=== PATIENT | male | born 1965 | race Caucasian/White ===

== ENCOUNTER 2016-09-08 19:32 | Emergency (ER) | payer MEDICAID, OTHER ==
[~2016-09-08] VITALS: Wt 89.0 kg
[~2016-09-08 19:32] MED LIST: NO MEDS
[2016-09-08] MEDS ORDERED: PRED20TA PO (20:09)
[2016-09-08] MEDS ORDERED: ACYC800T57 PO (20:09)
[2016-09-08] MEDS ORDERED: HYDR-906 PO (20:09)
[2016-09-08] MEDS ORDERED: IBUP-1542 PO (20:10)
--- NOTE | 2016-09-08 20:12 | ERD ---
ER Documentation Chief Complaint Date/Time DATE: 09/08/16 TIME: 20:11 Chief Complaint RIGHT SIDE ABDOMINAL AREA BURNING ON SKIN. APPEARS A PUSTULAR RASH. HPI This 51-year-old male presents with a rash on the right side of his abdomen for last 3 days which is painful and blisters. He also feels fatigued and has body aches measured fevers, cough, shortness breath or chest pain. ROS All systems reviewed and are negative except as per history of present illness. Medications Home Meds Active Scripts Ibuprofen* (Motrin*) 600 Mg Tab, 600 MG PO Q6, #15 TAB Prov:LINA HOLLINS MD 09/08/16 Hydrocodone/Acetaminophen ([place] 5-325 Tablet) 1 Each Tablet, 1 TAB PO Q6H Y for PAIN, #12 TAB Prov:LINA HOLLINS MD 09/08/16 Acyclovir* (Zovirax*) 800 Mg Tablet, 800 MG PO 5 TIMES DAILY for 7 Days, TAB Prov:LINA HOLLINS MD 09/08/16 Reported Medications [No Meds] No Conflict Check 03/31/10 Discontinued Scripts Prednisone* (Prednisone*) 20 Mg Tab, 40 MG PO DAILY for 4 Days, TAB Prov:LINA HOLLINS MD 09/08/16 Allergies Allergies: Coded Allergies: No Known Drug Allergies (Verified Allergy, Mild, 03/31/10) PMhx/Soc History of Surgery: No Anesthesia Reaction: No Hx Neurological Disorder: No Hx Respiratory Disorders: No Hx Cardiac Disorders: No Hx Psychiatric Problems: No Hx Miscellaneous Medical Probl: Yes (KIDNEY PROBLEMS) Hx Alcohol Use: Yes (OCCASSIONALLY) Hx Substance Use: No Hx Tobacco Use: No Physical Exam Vitals Vital Signs Date Time Temp Pulse Resp B/P Pulse Ox O2 Delivery O2 Flow Rate FiO2 09/08/16 19:37 97.7 69 20 135/85 98 Physical Exam Const: [] Alert, [id number] per Head: Atraumatic Eyes: Normal Conjunctiva ENT: Normal External Ears, Nose and Mouth. Neck: Full range of motion..~ No meningismus. Resp: Clear to auscultation bilaterally Cardio: Regular rate and rhythm, no murmurs Abd: Soft, non tender, non distended. Normal bowel sounds Skin: No petechiae or purpura. There is a vesicular dermatomal rash on the right flank. There is no streaking or significant induration. Back: No midline or flank tenderness Ext: No cyanosis, or edema Neur: Awake and alert Psych: Normal Mood and Affect Procedures/MDM Patient presents with signs and symptoms of herpes zoster. We treated with a short course of [place] and acyclovir and ibuprofen. The patient was stable with no new complaints during the ER course. Clinically, there is no current evidence to suggest meningitis, sepsis, acute abdomen, pneumonia, acute coronary syndrome, pulmonary embolism, or any other emergent condition appearing to require further evaluation or hospitalization. The patient should certainly return for any new or worsening symptoms per the aftercare instructions. They should otherwise follow-up with her primary care doctor for reevaluation this week. Departure Diagnosis: Primary Impression: Shingles Herpes zoster complications: without complications Qualified Code: B02.9 - Herpes zoster without complication Condition: Stable Patient Instructions: Shingles (Herpes Zoster) Additional Instructions: Cheque otro vez con torrez doctor primario en el proximo back or regresa para mas o nueva simptomas. LINA HOLLINS MD September 08, 2016 20:12
== END 2016-09-08 20:46 | disposition home or self-care (01) ==
LOC: FTE 19:32
DX: B02.9 Zoster without complications (principal)
CPT/HCPCS: 99284

== ENCOUNTER 2016-09-24 01:58 | Emergency (ER) | payer OTHER ==
[~2016-09-24] VITALS: Ht 167.6 cm; Wt 86.0 kg
[~2016-09-24 01:58] MED LIST changes: +ACYC800T57 PO; +HYDR-906 PO; +IBUP-1542 PO
[2016-09-24 02:00] VITALS: Ht 167.6 cm; Wt 86.0 kg
[2016-09-24] MEDS ORDERED: ONDA4TAB14 PO (03:26)
[2016-09-24] MEDS ORDERED: IBUP-1542 PO (03:26)
[2016-09-24] MEDS ORDERED: DICY10CA60 PO (03:26)
[2016-09-24] MEDS ORDERED: DICYCLOMINE 10 MG CAP PO ONE (03:30)
--- NOTE | 2016-09-24 03:43 | ERD ---
ER Documentation Chief Complaint Date/Time DATE: 09/24/16 TIME: 03:40 Chief Complaint DIARRHEA WITH STOMACH CRAMPING STARTED YESTERDAY. HPI 51-year-old male presents to emergency department for complaints of diarrhea and generalized abdominal cramping for started yesterday. Patient denies any vomiting. Patient states that he started to have symptoms after eating tacos. . Patient does complain of generalized abdominal pain cramping pain 4/10 scale, calm any with diarrhea, intermittent, denies any pain at this time. Patient denies any fever or chills. Patient denies any flank pain. Patient denies any hematuria or dysuria. Patient denies any fever or chills. ROS All systems reviewed and are negative except as per history of present illness. Medications Home Meds Active Scripts Ibuprofen* (Motrin*) 600 Mg Tab, 600 MG PO Q6H Y for PAIN AND OR ELEVATED TEMP, #30 TAB Prov:NOMI DIAZ ANIMAL CARE ATTENDANT 09/24/16 Ondansetron (Ondansetron Odt) 4 Mg Tab.rapdis, 4 MG PO Q8 Y for NAUSEA AND/OR VOMITING, #30 TAB Prov:NOMI DIAZ ANIMAL CARE ATTENDANT 09/24/16 Dicyclomine Hcl* (Bentyl*) 10 Mg Capsule, 20 MG PO QID, #40 CAP Prov:NOMI DIAZ ANIMAL CARE ATTENDANT 09/24/16 Ibuprofen* (Motrin*) 600 Mg Tab, 600 MG PO Q6, #15 TAB Prov:LINA HOLLINS MD 09/08/16 Hydrocodone/Acetaminophen ([place] 5-325 Tablet) 1 Each Tablet, 1 TAB PO Q6H Y for PAIN, #12 TAB Prov:LINA HOLLINS MD 09/08/16 Acyclovir* (Zovirax*) 800 Mg Tablet, 800 MG PO 5 TIMES DAILY for 7 Days, TAB Prov:LINA HOLLINS MD 09/08/16 Reported Medications [No Meds] No Conflict Check 03/31/10 Allergies Allergies: Coded Allergies: No Known Drug Allergies (Verified Allergy, Mild, 03/31/10) PMhx/Soc History of Surgery: No Anesthesia Reaction: No Hx Neurological Disorder: No Hx Respiratory Disorders: No Hx Cardiac Disorders: No Hx Psychiatric Problems: No Hx Miscellaneous Medical Probl: No (KIDNEY PROBLEMS) Hx Alcohol Use: No (OCCASSIONALLY) Hx Substance Use: No Hx Tobacco Use: No Smoking Status: Never smoker FmHx Family History: No coronary disease, No diabetes, No other Physical Exam Vitals Vital Signs Date Time Temp Pulse Resp B/P Pulse Ox O2 Delivery O2 Flow Rate FiO2 09/24/16 02:00 98.2 83 17 115/73 98 Physical Exam GENERAL: The patient is well developed and appropriate for usual state of health, in no apparent distress. CHEST: Clear to auscultation bilaterally. There are no rales, wheezes or rhonchi. HEART: Regular rate and rhythm. No murmurs, clicks, rubs or gallops. No S3 or S4. ABDOMEN: Soft, nontender and nondistended. Hyperactive bowel sounds. No rebound or guarding. No gross peritonitis. No gross organomegaly or masses. No Jauregui sign or McBurney point tenderness. BACK: No midline or flank tenderness. EXTREMITIES: Equal pulses bilaterally. There is no peripheral clubbing, cyanosis or edema. No focal swelling or erythema. Full range of motion. Grossly neurovascularly intact. NEURO: Alert and oriented. Cranial nerves 2-12 intact. Motor strength in all 4 extremities with 5/5 strength. Sensation grossly intact. Normal speech and gait. SKIN: There is no apparent rash or petechia. The skin is warm and dry. HEMATOLOGIC AND LYMPHATIC: There is no evidence of excessive bruising or lymphedema. No gross cervical, axillary, or inguinal lymphadenopathy. Results 24 hrs Current Medications Medications (Trade) Dose Ordered Sig/Patrick Route PRN Reason Start Time Stop Time Status Last Admin Dose Admin Dicyclomine HCl (Bentyl) 20 mg ONCE ONCE PO 09/24/16 03:30 09/24/16 03:31 DC 09/24/16 03:07 Bentyl was given here in emergency department to help with abdominal cramping, verbalized feeling much better afterwards. Procedures/MDM Medical Decision Making: Patient's symptoms of diarrhea with it is consistent with viral infection. There is low suspicion for abdominal emergencies at this time. Patients abdominal exam is normal at this time. Radiology exams or laboratory testing are indicated at this time. There is low suspicion for appendicitis, cholecystitis, abdominal aortic aneurysms or peritonitis at this time. There is low suspicion for sepsis. Patient appears well and is hemodynamically stable. Disposition: Home. Condition: Stable Prescription Bentyl, Zofran, ibuprofen Instructions: Patient is advised to take medications as prescribed. Patient is advised to rest, increase fluid intake and do brat diet for next 1-2 days and progress as tolerated. Patient is advised that if symptoms are worse, severe abdominal pain, uncontrolled vomiting, high fever, severe flank pain, worst signs and symptoms, to return to the emergency department immediately. Otherwise, patient can follow up with primary care doctor in 5-7 days. Departure Diagnosis: Primary Impression: Viral diarrhea Condition: Stable Patient Instructions: Diarrhea, Viral (Child) (Adult) NOMI DIAZ NP Sep 24, 2016 03:43
[2016-09-24 03:53] VITALS: BP 112/67; PULSE 70; RESP 18; TEMP 97.9
== END 2016-09-24 03:57 | disposition home or self-care (01) ==
LOC: FTE 01:58
DX: A08.4 Viral intestinal infection, unspecified (principal)
CPT/HCPCS: 99284

== ENCOUNTER 2017-04-20 12:57 | Emergency (ER) | END 2017-04-20 18:03 | disposition home or self-care (01) ==